=== PATIENT | female | born 1990 | race Caucasian/White ===

== ENCOUNTER → 2019-03-11 | Outpatient (CLI) | payer MEDICAID ==
--- NOTE | 2019-03-12 14:33 | NM ---
EXAMINATION TYPE: NM hepatobiliary w EF DATE OF EXAM: 03/11/2019 COMPARISON: NONE HISTORY: 28 year-old female right upper quadrant pain TECHNIQUE: After the intravenous administration of 5.3 mCi Tc 99m Mebrofenin hepatobiliary scintigrap hy is performed. Immediate images post injection. FINDINGS: There is satisfactory initial accumulation of tracer by the liver. The gallbladder is visualized wit hin 28 minutes. The small bowel activity is noted within 12 minutes. At one hour 8 ounces of oral e nsure plus is given to mimic CCK and gallbladder ejection fraction is calculated at 88 %, elevated ab ove the expected range (35-80%). IMPRESSION: 1. No scintigraphic evidence for acute/chronic cholecystitis or biliary dyskinesia. 2. However, gallbladder ejection fraction is elevated (88%). Findings may be seen in the setting of g allbladder hyperkinesis.
== END | disposition home or self-care (01) ==
LOC: RADNMMAIN 11:41
PROVIDERS: ATTEND Student in an Organized Health Care Education/Training Program
DX: R93.2 Abnormal findings on diagnostic imaging of liver and biliary tract (principal); R10.11 Right upper quadrant pain
CPT/HCPCS: 78226; A9537

== ENCOUNTER 2019-06-22 11:37 | Day surgery (SDC) | payer MEDICAID ==
[2019-06-19 16:15] VITALS: BMI 28.8
[~2019-06-22 11:37] MED LIST: LACTATED RINGERS 1,000 ML IV SCH; LIDOCAINE 1% (10MG/ML) FOR IV START INTRADERMA PRN
[2019-06-22 11:58] VITALS: TEMP 98.3
[2019-06-22] MEDS ORDERED: LIDOCAINE 1% (10MG/ML) FOR IV START SQ ONE (12:05)
[2019-06-22] MEDS ORDERED: MIDAZOLAM 2 MG/2 ML VIAL IV ONE (12:11)
[2019-06-22] MEDS ORDERED: LIDOCAINE 1% INJ 10MG/ML (20 ML MDV) ONE (12:21)
[2019-06-22] MEDS ORDERED: PROPOFOL 10 MG/ML 20 ML VIAL IV ONE (12:21)
[2019-06-22] MEDS ORDERED: GLYCOPYRROLATE 0.2 MG/ML 2 ML VIAL ONE (12:21)
[2019-06-22 12:48] VITALS: RESP 18
[2019-06-22 13:00] VITALS: BP 121/82; PULSE 83
--- NOTE | 2019-06-22 13:03 | P.OP ---
Date of Procedure: 06/22/19 Preoperative Diagnosis: Abdominal pain Postoperative Diagnosis: Mild gastritis Procedure(s) Performed: EGD with biopsies Anesthesia: MAC Surgeon: Rayshawn Burrell Estimated Blood Loss (ml): 0 Condition: stable Disposition: PACU Description of Procedure: Patient is brought to the Endo suite placed in left lateral decubitus position underwent sedation per department of anesthesia timeout performed correct patient correct procedure correct site was verified the endoscope was placed through the oropharynx down the esophagus with ease was placed through the stomach and into the first and second portion of duodenum no abnormalities are noted biopsy was taken. The scope was withdrawn into the stomach all bodies wall the stomach were inspected mild gastritis is noted the scope was retroflexed for sufficient time was allowed the stomach to insufflate no significant hiatal hernia was noted. Antral biopsy was taken to rule out H. pylori. The scope was then withdrawn to the GE junction no significant esophagitis is noted biopsies were taken to rule out Carvajal's. Scope was then slowly withdrawn through the rest of the esophagus and no other significant abnormalities were noted. Patient tolerated the procedure well there are no apparent complications
== END 2019-06-22 13:42 | disposition home or self-care (01) ==
LOC: ORWHC2ENDO 11:37
PROVIDERS: ATTEND Student in an Organized Health Care Education/Training Program
DX: K29.50 Unspecified chronic gastritis without bleeding (principal); K21.9 Gastro-esophageal reflux disease without esophagitis; Z79.3 Long term (current) use of hormonal contraceptives; Z79.899 Other long term (current) drug therapy; Z90.89 Acquired absence of other organs
CPT/HCPCS: 81025; 88305; 43239; J2250; J2001; J2704

== ENCOUNTER → 2020-09-17 | Outpatient (CLI) | payer MEDICAID ==
--- NOTE | 2020-09-17 16:56 | US ---
EXAMINATION TYPE: US thyroid st tissue head/neck DATE OF EXAM: 09/17/2020 COMPARISON: NONE CLINICAL HISTORY: E03.9 Hypothyroidism, unspecified. GLAND SIZE: Right Lobe: 3.9 x 1.5 x 1.2 cm Overall Parenchyma: homogenous Left Lobe: 3.6 x 1.5 x 1.2 cm Overall Parenchyma: homogeneous Isthmus Thickness: 0.1 cm NODULES RIGHT: # of nodules measured on right: 0 LEFT: # of nodules measured on left: 0 4 mm medial cyst on the left. ISTHMUS: # of nodules measured in the isthmus: 0 Bilateral neck scanned, no evidence of lymphadenopathy. IMPRESSION: The thyroid parenchyma is relatively homogenous. There is a 4 mm medial thyroid cyst on the left. Oth erwise unremarkable study.
== END | disposition home or self-care (01) ==
LOC: RADUSWWP 15:27
PROVIDERS: ATTEND Internal Medicine
DX: E03.9 Hypothyroidism, unspecified (principal); E04.1 Nontoxic single thyroid nodule
CPT/HCPCS: 76536

== ENCOUNTER → 2021-02-21 | Outpatient (CLI) | payer MEDICAID ==
[2021-02-21 15:29] LABS: HCT 36.2 % (37.2-46.3); HGB 11.8 g/dL (12.0-15.0); MCH 29.7 pg (27.0-32.0); MCHC 32.6 g/dL (32.0-37.0); MCV 91.2 fL (80.0-97.0); Mean Platelet Volume 13.6 fL (9.5-12.2); Platelet Count 145 X 10*3/uL (140-440); RBC 3.97 X 10*6/uL (4.10-5.20); RDW 13.2 % (11.5-14.5); WBC 9.81 X 10*3/uL (4.50-10.00)
== END | disposition home or self-care (01) ==
LOC: LABWHC1 08:51
PROVIDERS: ATTEND Obstetrics & Gynecology
DX: Z34.02 Encounter for supervision of normal first pregnancy, second trimester (principal); Z3A.00 Weeks of gestation of pregnancy not specified
CPT/HCPCS: 36415; 82950; 85027

== ENCOUNTER 2021-06-15 08:11 | Inpatient (IN) | payer MEDICAID ==
[2021-06-15] MEDS ORDERED: METHYLERGONOVINE 0.2 MG/ML 1 ML AMP IM PRN (08:47)
[2021-06-15] MEDS ORDERED: LIDOCAINE 1% (PF) 10 MG/ML (30 ML SDV) SQ PRN (08:47)
[2021-06-15] MEDS ORDERED: AMPICILLIN 2,000 MG in SODIUM CHLORIDE 0.9% 100 ML IVPB STA (08:47)
[2021-06-15] MEDS ORDERED: CARBOPROST TROMETHAMINE 250 MCG/ML 1 ML AMP IM PRN (08:47)
[2021-06-15] MEDS ORDERED: TERBUTALINE 1 MG/ML VIAL SQ PRN (08:47)
[2021-06-15] MEDS ORDERED: OXYTOCIN 10 UNIT/ML 1 ML VIAL IM PRN (08:47)
[2021-06-15] MEDS ORDERED: BUTORPHANOL 1 MG/ML 1 ML VIAL IV PRN (09:18)
[2021-06-15] MEDS: LACTATED RINGERS 1,000 ML IV SCH ×4 (09:26→18:46)
[2021-06-15 10:16] LABS: Basophils % (A) 0 %; Eosinophils % (A) 0 %; HGB 11.6 gm/dL (11.4-16.0); Hypochromasia Moderate; Lymphocytes # (A) 1.8 k/uL (1.0-4.8); Lymphocytes % (A) 13 %; MCH 26.2 pg (25.0-35.0); MCHC 32.2 g/dL (31.0-37.0); MCV 81.3 fL (80.0-100.0); Mean Platelet Volume 12.4; Monocytes # (A) 0.4 k/uL (0-1.0); Monocytes % (A) 3 %; Neutrophils % (A) 82 %; Platelet Count 163 k/uL (150-450); RBC 4.43 m/uL (3.80-5.40); RDW 14.6 % (11.5-15.5); WBC 13.3 k/uL (3.8-10.6)
[2021-06-15] MEDS ORDERED: fentaNYL (PF) 50 MCG/ML 5 ML AMP ONE (10:40)
[2021-06-15] MEDS ORDERED: ROPIVACAINE 5MG/ML 20ML VIAL ONE (10:40)
[2021-06-15] MEDS ORDERED: SODIUM CHLORIDE 0.9% 100 ML BAG ONE (10:40)
[2021-06-15 10:55] LABS: Anisocytosis (M) Present; Poikilocytosis (M) Present
[2021-06-15] MEDS ORDERED: AMPICILLIN 1,000 MG in SODIUM CHLORIDE 0.9% 50 ML IVPB SCH (13:00)
[2021-06-15] MEDS ORDERED: MORPHINE SULFATE (PF) 0.3 MG/0.3 ML SYR ONE (14:26)
[2021-06-15] MEDS ORDERED: ONDANSETRON 4 MG/2 ML VIAL ONE (14:26)
[2021-06-15] MEDS ORDERED: OXYTOCIN 30 UNITS/500 ML NS BAG IV ONE (14:26)
[2021-06-15] MEDS ORDERED: diphenhydrAMINE 25 MG CAP PO PRN (15:09)
[2021-06-15] MEDS ORDERED: diphenhydrAMINE 50 MG CAP PO PRN (15:09)
[2021-06-15] MEDS ORDERED: ONDANSETRON 4 MG/2 ML VIAL IVP PRN (15:09)
[2021-06-15] MEDS ORDERED: ZOLPIDEM 5 MG TAB PO PRN (15:09)
[2021-06-15] MEDS ORDERED: LANOLIN CREAM 5 GM TUBE TOPICAL PRN (15:09)
[2021-06-15] MEDS ORDERED: METOCLOPRAMIDE 5 MG/ML 2 ML VIAL IVP PRN (15:09)
[2021-06-15] MEDS ORDERED: diphenhydrAMINE 50 MG/ML 1 ML VIAL IVP PRN ×2 (15:09)
[2021-06-15] MEDS ORDERED: NALOXONE 0.4 MG/ML 1 ML VIAL IV PRN (15:09)
[2021-06-15] MEDS ORDERED: OXYTOCIN 30 UNITS/500 ML NS 30 UNIT in SALINE 1 500ML.BAG IV SCH (15:15)
[2021-06-15] MEDS: KETOROLAC 30 MG/ML 1 ML VIAL IVP SCH ×2 (16:49→23:18)
[2021-06-15] MEDS: ACETAMINOPHEN TAB 500 MG TAB PO SCH (20:07)
[2021-06-15] MEDS: SENNOSIDES-DOCUSATE SODIUM 1 EACH TAB PO SCH (20:10)
[2021-06-16] MEDS: ACETAMINOPHEN TAB 500 MG TAB PO SCH ×4 (03:16→20:03)
[2021-06-16] MEDS: LACTATED RINGERS 1,000 ML IV SCH ×3 (03:56→19:34)
[2021-06-16] MEDS: KETOROLAC 30 MG/ML 1 ML VIAL IVP SCH (05:46)
[2021-06-16 06:55] LABS: Basophils % (A) 0 %; Eosinophils # (A) 0.1 k/uL (0-0.7); Eosinophils % (A) 0 %; HCT 29.5 % (34.0-46.0); Hypochromasia Moderate; Lymphocytes # (A) 2.1 k/uL (1.0-4.8); Lymphocytes % (A) 14 %; MCH 26.3 pg (25.0-35.0); MCHC 32.3 g/dL (31.0-37.0); MCV 81.5 fL (80.0-100.0); Mean Platelet Volume 12.3; Monocytes # (A) 0.7 k/uL (0-1.0); Monocytes % (A) 4 %; Neutrophils # (A) 12.6 k/uL (1.3-7.7); Neutrophils % (A) 81 %; Platelet Count 137 k/uL (150-450); RBC 3.62 m/uL (3.80-5.40); RDW 14.7 % (11.5-15.5); WBC 15.7 k/uL (3.8-10.6)
--- NOTE | 2021-06-16 07:03 | P.HPOB ---
History of Present Illness H&P Date: 06/15/21 Chief Complaint: SROM, labor 31 year old presents at 40 weeks 3 days with spontaneous rupture of membranes at 745am. She had been suleman most of the night and then presented to triage 3cm/90% and -2 station. She is suleman every 2-5 minutes. heart tones 135 with moderate variability and reactive. Review of Systems All systems: negative Constitutional: Denies chills, Denies fever Eyes: denies blurred vision, denies pain Ears, nose, mouth and throat: Denies headache, Denies sore throat Cardiovascular: Denies chest pain, Denies shortness of breath Respiratory: Denies cough Gastrointestinal: Denies abdominal pain, Denies diarrhea, Denies nausea, Denies vomiting Genitourinary: Denies dysuria, Denies hematuria Musculoskeletal: Denies myalgias Integumentary: Denies pruritus, Denies rash Neurological: Denies numbness, Denies weakness Psychiatric: Denies anxiety, Denies depression Endocrine: Denies fatigue, Denies weight change Past Medical History Past Medical History: GERD/Reflux History of Any Multi-Drug Resistant Organisms: None Reported Past Surgical History: Tonsillectomy Additional Past Surgical History / Comment(s): [place] Teeth extracted. Past Anesthesia/Blood Transfusion Reactions: Postoperative Nausea & Vomiting (PONV) Additional Past Anesthesia/Blood Transfusion Reaction / Comment(s): Sister PONV. Past Psychological History: No Psychological Hx Reported Smoking Status: Never smoker Past Alcohol Use History: Occasional Past Drug Use History: None Reported - Past Family History Mother Family Medical History: No Reported History Medications and Allergies Home Medications Medication Instructions Recorded Confirmed Type Omeprazole [PriLOSEC] 20 mg PO DAILY 06/19/19 06/15/21 History Levothyroxine Sodium [Synthroid] 50 mcg PO DAILY 06/15/21 06/15/21 History Pnv No.95/Ferrous Fum/Folic AC 1 each PO DAILY 06/15/21 06/15/21 History [ Multivitamin Tablet] Allergies Allergy/AdvReac Type Severity Reaction Status Date / Time No Known Allergies Allergy Verified 06/15/21 08:18 Exam Osteopathic Statement: *. No significant issues noted on an osteopathic structural exam other than those noted in the History and Physical/Consult. Vital Signs Temp Pulse Resp BP Pulse Ox 06/16/21 04:00 98.0 F 74 16 117/78 98 06/16/21 00:00 98.4 F 77 15 120/81 98 06/15/21 20:00 98.2 F 87 16 112/79 98 06/15/21 17:22 96.8 F L 86 16 125/77 99 06/15/21 16:52 99.2 F 93 17 122/77 98 06/15/21 16:22 106 H 18 146/71 98 06/15/21 16:07 107 H 18 146/67 98 06/15/21 15:49 110 H 18 154/70 97 06/15/21 15:37 99 20 137/65 96 06/15/21 15:22 97.4 F L 99 20 117/56 98 06/15/21 09:18 97.2 F L 88 17 131/85 06/15/21 08:17 97.2 F L 88 17 131/85 98 Intake and Output 06/15/21 06/15/21 06/16/21 14:59 22:59 06:59 Output Total 300 1900 450 Balance -300 -1900 -450 Output: Urine 300 1400 450 Emesis 300 Output, Quantitative 200 Blood Loss Other: Voiding Method Indwelling Catheter # Voids 1 Weight 94.347 kg Heart: Regular rate and rhythm Lungs: Clear to auscultation bilaterally Abdomen: Soft, nontender Extremities: Negative Homans sign Results Result Diagrams: 06/15/21 10:08 Abnormal Lab Results - Last 24 Hours (Table) 06/15/21 Range/Units 10:08 WBC 13.3 H (3.8-10.6) k/uL Neutrophils # 11.0 H (1.3-7.7) k/uL Assessment and Plan (1) Spontaneous rupture of membranes Current Visit: Yes Status: Acute Code(s): [id number] - SNOMED Code(s): 156303581 (2) Normal labor Current Visit: Yes Status: Acute Code(s): O80 - ENCOUNTER FOR FULL-TERM UNCOMPLICATED DELIVERY; Z37.9 - OUTCOME OF DELIVERY, UNSPECIFIED SNOMED Code(s): 82319867 Plan: 1. Admit to family place 2. Expectant management 3. Anticipate normal vaginal delivery
--- NOTE | 2021-06-16 07:09 | P.OP ---
Date of Procedure: 06/15/21 Preoperative Diagnosis: 1. at 40 weeks 3 days 2. active labor 3. category III heart tones. Postoperative Diagnosis: 1. at 40 weeks 3 days 2. active labor 3. category III heart tones. Procedure(s) Performed: Primary low transverse Anesthesia: epidural Surgeon: Sirena Acosta Contractor Buyer #1: Alice Armenta Estimated Blood Loss (ml): 500 IV fluids (ml): 600 Urine output (ml): 200 Pathology: other (Placenta) Condition: stable Disposition: floor Indications for Procedure: 31 year old presents at 40 weeks 3 days with spontaneous rupture of membranes at 745am. She had been suleman most of the night and then presented to triage 3cm/90% and -2 station. She is suleman every 2-5 minutes. heart tones 135 with moderate variability and reactive. She did get an epidural and quickly progressed to 6 cm. Baby had a variable deceleration soon after that to the 60s for a few minutes but did return to baseline with position changes and oxygen. Patient continued to progress and was 8 cm for a few hours when the variability started to become minimal and she had some subtle decelerations after the contractions. These category 3 heart tones were managed following algorithm including initiating corrective measures of position changes and IV fluids and oxygen. These decelerations resolved for a little while but then came back within the hour. I went to check her cervix and then the baby had a deceleration lasting over 6 minutes that did finally resolve with position changes again. The patient centered huddled was held and the need for an expedited delivery was discussed with the patient and her family. Through [employer] decision making the decision was made to take the patient for Zantac. Operative Findings: Viable , Apgars 8, 9, weight 9 lbs. 4 oz. Normal uterus, tubes, ovaries. Description of Procedure: Patient was taken to the operating room where epidural anesthesia was found be adequate. She was prepped and draped in normal sterile fashion in dorsal supine position with a leftward tilt. Pfannenstiel skin incision was made the scalpel and carried through to the underlying layer of fascia with the scalpel. Fascia was incised in midline and carried bilaterally with the Willson scissors. The superior aspect of the fascial incision was grasped with Aleshia clamps elevated and the underlying rectus muscles dissected off with the Willson's. Attention was then turned to inferior aspect of same incision which in a similar fashion was grasped tented up and the underlying rectus muscles dissected off with the Willson's. The rectus muscles were the midline and the peritoneum was identified tented up and entered sharply with the scalpel. The incision was extended superiorly and inferiorly with good visualization of the bladder. The bladder blade was inserted and the vesicouterine peritoneum was incised the Metzenbaums then carried bilaterally and bladder flap created digitally. A low transverse incision was then made on the uterus with the scalpel. This was carried bilaterally and digital manner. 's head delivered atraumatically, nose and mouth bulb suctioned, cord clamped and cut, handed off to waiting nurses. Apgars 8,9, weight 9 lbs. 4 oz. Placenta delivered manually, intact with three-vessel cord. The uterus is exteriorized and cleared of all clots and debris. The uterine incision was closed with 0 Vicryl in a running locked fashion. Second layer of the same sutures used in imbricating fashion to obtain excellent hemostasis. Bladder flap was then reapproximated using 2-0 Vicryl in a running fashion. Both ovaries and tubes appeared normal. The uterus was placed back into the abdomen. The peritoneum was reapproximated using 2-0 Vicryl in a running fashion. The muscles were reapproximated using 2- 0 Vicryl in interrupted fashion. The fascia was reapproximated using 0 Vicryl in a running fashion. The subcutaneous tissues closed with 3-0 Vicryl running fashion. The skin was closed ciarra. Patient tolerated the procedure well, sponge and instrument counts were correct times 2 and she was taken to the recovery room in stable condition.
[2021-06-16 07:22] LABS: HGB 9.5 gm/dL (11.4-16.0)
--- NOTE | 2021-06-16 07:44 | P.PN ---
Progress Note - Text Progress Note Date: 06/16/21 (667) Anesthesia Postop day 1 Subjective: Status Post section with Duramorph. Patient seen and examined. Mild pruritus. No nausea or vomiting. Motor function has returned and is good in all extremities. No paresthesias. VAS 0 out of 10. Denies fever. Gross lower extremity strength intact. Without apparent anesthetic complications. Objective: Vital signs reviewed Heart: Regular Rate Lungs: Good chest excursion Abdomen: Appears nondistended Assessment: Status post with Duramorph postop day 1 Plan: Continue current care with your medical management. Anticipated and the Duramorph around midday tonight, you may see increased pain needs around this time.
--- NOTE | 2021-06-16 08:16 | P.MSEPDOC ---
Presenting Problems - Arrival Data Date of Arrival on Unit: 06/15/21 Time of Arrival on Unit: 08:00 Mode of Transport: Wheelchair - Complaint OB-Reason for Admission/Chief Complaint: Possible Onset of Labor, Rule Out SROM, Pain Comment: pt presents to triage for SROM at 0745, contractions every 2-3 Medical History - Information : 1 Para: 0 Term: 0 : 0 Abortions: Spontaneous or Elective: 0 Number of Living Children: 0 - Gestational Age Gestational Age by SARABJIT (wks/days): 40 Weeks and 3 Days Review of Systems - Review of Systems Constitutional: No problems Breast: No problems ENT: No problems Cardiovascular: No problems Respiratory: No problems Gastrointestinal: No problems Genitourinary: No problems Musculoskeletal: No problems Neurological: No problems Skin: No problems Vital Signs - Temperature Temperature: 98.0 F Temperature Source: Oral - Pulse Right Brachial Pulse Rate: 74 Pulse Assessment Method: Pulse Oximetry - Respirations Respiratory Rate: 16 Oxygen Delivery Method: Room Air O2 Sat by Pulse Oximetry: 98 - Blood Pressure Right Arm Blood Pressure: 117/78 Blood Pressure Mean: 91 Blood Pressure Source: Automatic Cuff Medical Screen Scoring - Cervical Exam Dilation (cm): 3 Effacement (%): 90 Station: -2 Membranes: Ruptured - Uterine Contractions Frequency From (mins): 2 Frequency To (mins): 3 Duration From (seconds): 40 Duration To (seconds): 60 Intensity: Moderate Resting: Soft to palpation - Assessment - Baby A Baseline FHR: 130 Heart Rate - NICHD Category: Category I (Normal) NST: Reactive Physician Notification - Physician Notified Physician Notified Date: 06/15/21 Physician Notified Time: 08:42 Physician: Alice Armenta Order Received: Yes - Notification Comment Comment: admit for labor Maternal Triage Index - Maternal Triage Index Presenting for scheduled procedure w/no complaint: No - Stat/Priority 1 Stat Priority 1: No - Urgent/Priority 2 Urgent Priority 2: Yes Provider Notified: Dr. Armenta Provider Notified Time: 08:42 Criteria Met for Priority 2: pt 40 3/7 GA, SROM 40 4/7 contractions every 2-3 mins Disposition - Disposition OB Disposition: Admit I agree with the RN Medical Screening Exam: Yes Case reviewed; plan agreed upon as documented in EMR&OBIX.: Yes Diagnosis: ENCOUNTER FOR FULL-TERM UNCOMPLICATED DELIVERY
--- NOTE | 2021-06-16 08:16 | P.PNOBGPC ---
Subjective - Subjective Principal diagnosis: S/P 1*LTCS POD #1 Interval history: Patient seen and examined. Denies nausea, vomiting, chest pain, shortness of breath or any calf pain. She is tolerating regular diet and passing flatus. Patient reports: Reports appetite normal, Reports voiding normally, Reports pain well controlled, Reports ambulating normally : doing well Objective - Vital Signs Latest vital signs: Vital Signs Temp Pulse Resp BP Pulse Ox 06/16/21 04:00 98.0 F 74 16 117/78 98 06/16/21 00:00 98.4 F 77 15 120/81 98 06/15/21 20:00 98.2 F 87 16 112/79 98 06/15/21 17:22 96.8 F L 86 16 125/77 99 06/15/21 16:52 99.2 F 93 17 122/77 98 06/15/21 16:22 106 H 18 146/71 98 06/15/21 16:07 107 H 18 146/67 98 06/15/21 15:49 110 H 18 154/70 97 06/15/21 15:37 99 20 137/65 96 06/15/21 15:22 97.4 F L 99 20 117/56 98 06/15/21 09:18 97.2 F L 88 17 131/85 06/15/21 08:17 97.2 F L 88 17 131/85 98 Intake and Output 06/15/21 06/16/21 06/16/21 22:59 06:59 14:59 Output Total 1900 450 Balance -1900 -450 Output: Urine 1400 450 Emesis 300 Output, Quantitative 200 Blood Loss Other: Voiding Method Indwelling Catheter # Voids 0 - Exam Lungs: bilateral: normal Chest: Normal S1, Normal S2 Extremities: Present: normal Abdomen: Present: normal appearance, soft. Absent: distention, tenderness Incision: Present: normal, dry, intact Uterus: Present: normal, firm - Labs Labs: Abnormal Lab Results - Last 24 Hours (Table) 06/15/21 06/16/21 Range/Units 10:08 06:35 WBC 13.3 H 15.7 H (3.8-10.6) k/uL RBC 3.62 L (3.80-5.40) m/uL Hgb 9.5 L D (11.4-16.0) gm/dL Hct 29.5 L (34.0-46.0) % Plt Count 137 L (150-450) k/uL Neutrophils # 11.0 H (1.3-7.7) k/uL Assessment and Plan (1) Spontaneous rupture of membranes Current Visit: Yes Status: Resolved Code(s): [id number] - SNOMED Code(s): 563026227 (2) Normal labor Current Visit: Yes Status: Resolved Code(s): O80 - ENCOUNTER FOR FULL-TERM UNCOMPLICATED DELIVERY; Z37.9 - OUTCOME OF DELIVERY, UNSPECIFIED SNOMED Code(s): 68336010 (3) Status post primary low transverse section Current Visit: Yes Status: Acute Code(s): Z98.891 - HISTORY OF UTERINE SCAR FROM PREVIOUS SURGERY SNOMED Code(s): 491868131 Plan: 1. po pain meds 2. cont po management 3. increase ambulation
[2021-06-16 08:25] LABS: Large Platelets Present
[2021-06-16] MEDS: SENNOSIDES-DOCUSATE SODIUM 1 EACH TAB PO SCH ×2 (08:32→20:03)
[2021-06-16] MEDS: IBUPROFEN 600 MG TAB PO SCH ×2 (11:32→18:24)
[2021-06-17] MEDS: LACTATED RINGERS 1,000 ML IV SCH (01:26)
[2021-06-17] MEDS: IBUPROFEN 600 MG TAB PO SCH ×3 (02:15→14:54)
[2021-06-17] MEDS: ACETAMINOPHEN TAB 500 MG TAB PO SCH ×3 (05:08→11:02)
[2021-06-17] MEDS ORDERED: LEVOTHYROXINE 50 MCG TAB PO SCH (06:30)
--- NOTE | 2021-06-17 08:17 | P.DS ---
Providers Date of admission: 06/15/21 08:49 Expected date of discharge: 06/17/21 Attending physician: Sirena Acosta Primary care physician: Stated None - Discharge Diagnosis(es) (1) Spontaneous rupture of membranes Current Visit: Yes Status: Resolved (2) Normal labor Current Visit: Yes Status: Resolved (3) Status post primary low transverse section Current Visit: Yes Status: Acute Hospital Course: Patient presented in active labor. She underwent a primary low transverse C- section for category 3 heart tones. Postoperative course was uncomplicated. She denies nausea, vomiting, chest pain, shortness of breath or calf pain. Patient will be discharged home post operative day #2 in stable condition to follow-up with me in one week. Incision is clean, dry, intact with ciarra she is tolerating regular diet passing flatus and her pain is well- controlled. Plan - Discharge Summary New Discharge Prescriptions: New Ibuprofen [Motrin] 600 mg PO Q6HR #40 tab oxyCODONE HCL [OxyIR] 5 mg PO Q6HR PRN #12 tab PRN Reason: Pain No Action Omeprazole [PriLOSEC] 20 mg PO DAILY Levothyroxine Sodium [Synthroid] 50 mcg PO DAILY Pnv No.95/Ferrous Fum/Folic AC [ Multivitamin Tablet] 1 each PO DAILY Discharge Medication List Omeprazole [PriLOSEC] 20 mg PO DAILY 06/19/19 [History] Levothyroxine Sodium [Synthroid] 50 mcg PO DAILY 06/15/21 [History] Pnv No.95/Ferrous Fum/Folic AC [ Multivitamin Tablet] 1 each PO DAILY 06/15/21 [History] Ibuprofen [Motrin] 600 mg PO Q6HR #40 tab 06/17/21 [Rx] oxyCODONE HCL [OxyIR] 5 mg PO Q6HR PRN #12 tab 06/17/21 [Rx] Follow up Appointment(s)/Referral(s): Sirena Acosta DO [Doctor of Osteopathic Medicine] - 1 Week Discharge Disposition: HOME SELF-CARE
[2021-06-17] MEDS: SENNOSIDES-DOCUSATE SODIUM 1 EACH TAB PO SCH (08:29)
[2021-06-17] MEDS: SIMETHICONE 80 MG CHEWABLE PO PRN ×2 (08:29→13:19)
[2021-06-17 09:31] VITALS: BP 131/92; PULSE 78; RESP 16; TEMP 97.8
== END 2021-06-17 15:55 | disposition home or self-care (01) | DRG 788 ==
LOC: FBPOP 08:11 → 4FBP 08:49
PROVIDERS: ADMIT Obstetrics & Gynecology; ATTEND Obstetrics & Gynecology
PROC: 4A0HXCZ Measurement of Products of Conception, Cardiac Rate, External Approach (ICD-10-PCS; 2021-06-15)
PROC: 10D00Z1 Extraction of Products of Conception, Low, Open Approach (ICD-10-PCS; principal; 2021-06-15 14:31)
DX: O76 Abnormality in fetal heart rate and rhythm complicating labor and delivery (principal); Z37.0 Single live birth; O99.62 Diseases of the digestive system complicating childbirth; K21.9 Gastro-esophageal reflux disease without esophagitis; Z3A.40 40 weeks gestation of pregnancy; O99.73 Diseases of the skin and subcutaneous tissue complicating the puerperium; L29.9 Pruritus, unspecified
CPT/HCPCS: 59025; 84112; 85025; 86850; 86900; 86901; 88307; 99213

== ENCOUNTER → 2021-06-15 | Outpatient (CLI) | payer MEDICAID ==
[2021-06-15 02:18] VITALS: BP 134/91; PULSE 103; RESP 18; TEMP 97.1
--- NOTE | 2021-06-19 08:41 | P.MSEPDOC ---
Presenting Problems - Arrival Data Date of Arrival on Unit: 06/15/21 Time of Arrival on Unit: 01:50 Mode of Transport: Ambulatory - Complaint OB-Reason for Admission/Chief Complaint: Possible Onset of Labor Medical History - Information : 1 Para: 0 Term: 0 : 0 Abortions: Spontaneous or Elective: 0 Number of Living Children: 0 - Gestational Age Gestational Age by SARABJIT (wks/days): 40 Weeks and 3 Days - History Complications: GBS+ Review of Systems - Review of Systems Constitutional: No problems Breast: No problems ENT: No problems Cardiovascular: No problems Respiratory: No problems Gastrointestinal: No problems Genitourinary: No problems Musculoskeletal: No problems Neurological: No problems Skin: No problems Vital Signs - Temperature Temperature: 97.1 F Temperature Source: Temporal Artery Scan - Pulse Right Pulse Rate: 103 Pulse Assessment Method: Pulse Oximetry - Respirations Respiratory Rate: 18 Oxygen Delivery Method: Room Air - Blood Pressure Right Arm Blood Pressure: 134/91 Blood Pressure Mean: 105 Blood Pressure Source: Automatic Cuff Medical Screen Scoring - Cervical Exam Dilation (cm): 0 Station: -4 Membranes: Intact - Uterine Contractions Frequency From (mins): 2 Frequency To (mins): 9 Duration From (seconds): 60 Duration To (seconds): 120 Intensity: Mild Resting: Soft to palpation - Assessment - Baby A Baseline FHR: 135 Heart Rate - NICHD Category: Category I (Normal) NST: Reactive Physician Notification - Physician Notified Physician Notified Date: 06/15/21 Physician Notified Time: 03:12 Physician: Alice Armenta - Notification Comment Comment: Dr. Armenta notified of pt's arrival to triage, report given including maternal and status, maternal VS, FHTs, pain level and coping, and SVE x2. Pt okay to go home with education on comfort measures. Maternal Triage Index - Maternal Triage Index Presenting for scheduled procedure w/no complaint: No - Stat/Priority 1 Stat Priority 1: No - Urgent/Priority 2 Urgent Priority 2: No - Prompt/Priority 3 Prompt Priority 3: No - Non-Urgent/Priority 4 Non-Urgent Priority 4: Yes Criteria Met for Priority 4: with SARABJIT 06/12/21 here at 40.3 weeks of gestation with c/o UC's x1 day. Disposition - Disposition OB Disposition: Triage, Discharge to home Discharge Date: 06/15/21 Discharge Time: 03:28 I agree with the RN Medical Screening Exam: Yes Case reviewed; plan agreed upon as documented in EMR&OBIX.: Yes Diagnosis: FALSE LABOR AT OR AFTER 37 COMPLETED WEEKS OF GESTATION
== END ==
LOC: FBPOP 01:50
PROVIDERS: ATTEND Obstetrics & Gynecology
DX: O47.1 False labor at or after 37 completed weeks of gestation (principal); Z3A.40 40 weeks gestation of pregnancy
CPT/HCPCS: 59025; 99213

== ENCOUNTER → 2021-09-30 | Outpatient (CLI) | payer MEDICAID ==
[2021-09-30 14:47] LABS: T4, Free (Free Thyroxine) 1.21 ng/dL (0.800-1.800)
== END | disposition home or self-care (01) ==
LOC: LABWHC1 07:21
PROVIDERS: ATTEND Internal Medicine
DX: E03.9 Hypothyroidism, unspecified (principal)
CPT/HCPCS: 36415; 84439; 84443

== ENCOUNTER → 2023-06-29 | Outpatient (CLI) | payer BC ==
--- NOTE | 2023-06-30 17:37 | US ---
EXAMINATION TYPE: US pelvic complete DATE OF EXAM: 06/29/2023 COMPARISON: NONE CLINICAL INDICATION: Female, 33 years old with history of N92.0 EXCESSIVE AND FREQUENT MENSTRUATION W ITH REG; Heavy menses TECHNIQUE: Transabdominal (TA EXAM MEASUREMENTS: Uterus: 9.8 x 4.5 x 5.7 cm Endometrial Stripe: .9 cm Right Ovary: 4.0 x 2.1 x 3.3 cm Left Ovary: 3.3 x 2.6 x 2.4 cm 1. Uterus: Anteverted and otherwise wnl 2. Endometrium: wnl 3. Right Ovary: wnl 4. Left Ovary: wnl 5. Bilateral Adnexa: wnl 6. Posterior cul-de-sac: wnl IMPRESSION: Unremarkable transabdominal sonographic examination of the pelvis.
== END | disposition home or self-care (01) ==
LOC: RADUSWWP 15:59
PROVIDERS: ATTEND Obstetrics & Gynecology
DX: N92.0 Excessive and frequent menstruation with regular cycle (principal)
CPT/HCPCS: 76856

== ENCOUNTER 2023-12-06 17:00 | Outpatient (CLI) | payer BC ==
--- NOTE | 2024-01-05 10:36 | US ---
Patient: Antonette Sorenson Ordering Physician: Unknown, Unknown ID: [id number] Phone, Pager: Phone: N/A Pager: N/A : 1990 Age/Gender: 33Y, F Primary Location: N/A Procedure: US OB >= 14 wk fetus S tudy Date: 12/06/2023 5:15:00 PM EXAMINATION TYPE: US OB >= 14 wk fetus DATE OF EXAM: 12/08/2023 COMPARISON: None CLINICAL INDICATION: Unknown, old with history of ; HISTORY; NO HEART TONES IN OFFICE. PATIENT HAS NO SYMPTOMS. NO CARDIAC ACTIVITY SEEN ON TODAYS SCAN. MEASURING 16 WEEKS 5 DAYS TODAY. ANTERIOR PLACENTA. BABY IS IN BREECH PRESENTATION. LYNETTE= 12.4CM. EFW= 183 GRAMS. IMPRESSION: No cardiac activity identified correlate for demise.
== END 2023-12-06 18:00 ==
LOC: FBPOP 17:00
PROVIDERS: ATTEND Obstetrics & Gynecology
DX: O02.1 Missed abortion (principal)
CPT/HCPCS: 76805; 99213

== ENCOUNTER 2023-12-07 10:00 | Inpatient (IN) | payer BC ==
[2023-12-07] MEDS ORDERED: ACETAMINOPHEN TAB 500 MG TAB ONE ×2 (11:19→17:21)
[2023-12-07] MEDS ORDERED: ONDANSETRON 4 MG/2 ML VIAL ONE ×2 (11:20→17:21)
[2023-12-07] MEDS ORDERED: CARBOPROST TROMETHAMINE 250 MCG/ML 1 ML AMP IM ONE ×6 (12:21→22:20)
[2023-12-07] MEDS ORDERED: NALBUPHINE 10 MG/ML (10 ML MDV) ONE (20:42)
[2023-12-08] MEDS ORDERED: NALBUPHINE 10 MG/ML (10 ML MDV) ONE (00:33)
[2023-12-08] MEDS ORDERED: IBUPROFEN 600 MG TAB PO ONE ×2 (01:12→08:03)
[2023-12-08] MEDS ORDERED: ONDANSETRON 4 MG/2 ML VIAL ONE (03:17)
[2023-12-08] MEDS ORDERED: ACETAMINOPHEN TAB 325 MG TAB ONE ×2 (03:17→10:38)
== END 2023-12-08 12:05 | disposition home or self-care (01) | DRG 807 ==
LOC: UNDOADMIN 10:00 → FBPOP 10:00 → 4FBP 10:00 → EDSTATUS 12-23 10:58
PROVIDERS: ADMIT Obstetrics & Gynecology; ATTEND Obstetrics & Gynecology
PROC: 3E0DXGC Introduction of Other Therapeutic Substance into Mouth and Pharynx, External Approach (ICD-10-PCS; principal; 2023-12-07)
PROC: 10E0XZZ Delivery of Products of Conception, External Approach (ICD-10-PCS; principal; 2023-12-07)
DX: O02.1 Missed abortion (principal); O34.219 Maternal care for unspecified type scar from previous cesarean delivery; Z3A.18 18 weeks gestation of pregnancy; Z37.1 Single stillbirth
CPT/HCPCS: 76805; 86644; 86695; 86696; 86762; 86777; 86850; 86900; 86901